=== PATIENT | female | born 1965 | race American Indian/Alaskan Native ===

== ENCOUNTER 2017-05-22 06:28 | Emergency (ER) | payer MEDICAID ==
[2017-05-22 06:43] VITALS: TEMP 97.9
--- NOTE | 2017-05-22 07:25 | ED PDOC ---
HPI: Psych/Substance Abuse Time Seen by Provider: 05/22/17 07:07 Chief Complaint (Nursing): Psychiatric Evaluation Chief Complaint (Provider): Psychiatric Evaluation History Per: Patient History/Exam Limitations: no limitations Onset/Duration Of Symptoms: Persistent Current Symptoms Are (Timing): Still Present Additional Complaint(s): 52 year old female with medical history of anxiety and asthma, presents to the emergency department with a complaint of suicidal ideation with plan to hurt self with a plastic fork but denied any attempts. Patient stated that she lives at a homeless long term and is afraid of her well-being while she is there. She denied any nausea, vomiting, diarrhea, abdominal pain or chest pain. Patient reported that she is compliant with medications but feels it does not help. PMD: none provided Past Medical History Reviewed: Historical Data, Nursing Documentation, Vital Signs Vital Signs: Last Vital Signs Temp 97.9 F 05/22/17 06:32 Pulse 87 05/22/17 06:32 Resp 17 05/22/17 06:32 BP 125/95 H 05/22/17 06:32 Pulse Ox 99 05/22/17 06:32 - Medical History PMH: Anemia (takes iron pills), Anxiety, Asthma, Bipolar Disorder, Depression, HTN, Seizures (uses keppra for control) Denies: Diabetes, Hepatitis, HIV, Chronic Kidney Disease, Sexually Transmitted Disease - Surgical History Surgical History: Cholecystectomy - Family History Family History: States: Unknown Family Hx - Social History Current smoker - smoking cessation education provided: Yes Alcohol: None Drugs: Denies - Immunization History Hx Tetanus Toxoid Vaccination: No Hx Influenza Vaccination: No Hx Pneumococcal Vaccination: No - Home Medications Home Medications: Ambulatory Orders Medication Instructions Recorded Ferrous Sulfate [Feosol] 325 mg PO DAILY 08/06/15 Mirtazapine [Remeron] 30 mg PO HS 08/06/15 Naproxen 500 mg PO BID 08/06/15 Escitalopram [Lexapro] 5 mg PO DAILY #30 tab 08/13/15 traZODone [Desyrel] 50 mg PO HS PRN #30 tab 08/13/15 Escitalopram [Lexapro] 20 mg PO DAILY #30 tab 05/21/17 Gabapentin [Neurontin] 400 mg PO BID #60 cap 05/21/17 Naproxen [Anaprox DS] 550 mg PO BID PRN #60 tab 05/21/17 QUEtiapine [Seroquel] 100 mg PO HS #30 tab 05/21/17 levETIRAcetam [Keppra] 500 mg PO BID #60 tab 05/21/17 - Allergies Allergies/Adverse Reactions: Allergies Allergy/AdvReac Type Severity Reaction Status Date / Time No Known Allergies Allergy Verified 05/02/17 08:22 Review of Systems ROS Statement: Except As Marked, All Systems Reviewed And Found Negative Cardiovascular: Negative for: Chest Pain Gastrointestinal: Negative for: Nausea, Vomiting, Abdominal Pain, Diarrhea Psych: Positive for: Suicidal ideation Physical Exam - Reviewed Nursing Documentation Reviewed: Yes Vital Signs Reviewed: Yes - Physical Exam Appears: Positive for: Non-toxic, No Acute Distress Head Exam: Positive for: ATRAUMATIC, NORMAL INSPECTION, NORMOCEPHALIC Skin: Positive for: Normal Color Eye Exam: Positive for: Normal appearance, EOMI, PERRL ENT: Positive for: Normal ENT Inspection Neck: Positive for: Normal Cardiovascular/Chest: Positive for: Regular Rate, Rhythm Respiratory: Positive for: Normal Breath Sounds. Negative for: Decreased Breath Sounds, Respiratory Distress Gastrointestinal/Abdominal: Positive for: Normal Exam, Soft. Negative for: Tenderness Back: Positive for: Normal Inspection. Negative for: L CVA Tenderness, R CVA Tenderness Extremity: Positive for: Normal ROM (upper/lower). Negative for: Tenderness, Pedal Edema (bilaterally), Deformity (upper/lower), Other (abrasions or lacerations to upper extremities) Neurologic/Psych: Positive for: Alert, Oriented - ECG O2 Sat by Pulse Oximetry: 99 (RA) Pulse Ox Interpretation: Normal - Progress ED Course And Treament: 1046: Crisis saw pt. Does not meet criteria for admit. Fu with pcp. Pt. ate 2 trays of food. AAOx3. Ambulated with no issues. Medical Decision Making Medical Decision Making: Initial Impression: Suicidal ideation Initial Plan: * Crisis evaluation Scribe Attestation: Documented by Julisa Chahal, acting as a scribe for Dyllan Avilez MD. Provider Scribe Attestation: All medical record entries made by the Scribe were at my direction and personally dictated by me. I have reviewed the chart and agree that the record accurately reflects my personal performance of the history, physical exam, medical decision making, and the department course for this patient. I have also personally directed, reviewed, and agree with the discharge instructions and disposition. Disposition - Clinical Impression Clinical Impression: Depressed - Patient ED Disposition Is Patient to be Admitted: No Counseled Patient/Family Regarding: Diagnosis, Need For Followup - Disposition Referrals: [facility] [Outside] - 05/24/17 [facility] [Outside] - 05/24/17 Disposition: Routine/Home Disposition Time: 10:48 Condition: STABLE Additional Instructions: Return if not better in 3 days. Instructions: Depression
[2017-05-22 07:35] VITALS: BP 118/69; PULSE 76; RESP 18
[2017-05-22 07:37] VITALS: O2SAT 99
== END 2017-05-22 11:08 | disposition home or self-care (01) ==
LOC: H.ER 06:28
DX: F32.9 Major depressive disorder, single episode, unspecified (principal); F41.9 Anxiety disorder, unspecified; I10 Essential (primary) hypertension; R45.851 Suicidal ideations; F31.9 Bipolar disorder, unspecified; J45.909 Unspecified asthma, uncomplicated